=== PATIENT | male | born 1990 | race African-American/Black ===

== ENCOUNTER 2020-06-02 18:38 | Emergency (ER) | payer MEDICAID, OTHER ==
[~2020-06-02] VITALS: Ht 177.8 cm; Wt 112.9 kg
[2020-06-02 20:35] VITALS: BP 122/75
== END 2020-06-03 02:07 | disposition home or self-care (01) ==
LOC: ER 18:39
DX: U07.1 COVID-19 (principal); J06.9 Acute upper respiratory infection, unspecified
CPT/HCPCS: 36415; 71045; 87426

== ENCOUNTER 2022-07-21 13:53 | Emergency (ER) | payer MEDICAID ==
[~2022-07-21] VITALS: Ht 177.8 cm; Wt 128.0 kg
[2022-07-21 15:31] VITALS: BP 138/87
[2022-07-21] MEDS ORDERED: BACDST PO (15:34)
[2022-07-21] MEDS ORDERED: PRED20TA2 PO (15:34)
== END 2022-07-21 15:44 | disposition home or self-care (01) ==
LOC: ER 13:53
DX: J01.90 Acute sinusitis, unspecified (principal); J45.909 Unspecified asthma, uncomplicated

== ENCOUNTER 2022-09-07 11:57 | Emergency (ER) | payer MEDICAID ==
[~2022-09-07] VITALS: Ht 177.8 cm; Wt 128.8 kg
[~2022-09-07 11:57] MED LIST: BACDST PO; PRED20TA2 PO
[2022-09-07 14:08] LABS: Basophils # (auto) 0.1 10 ^3/uL (0-0.2); Basophils % (auto) 0.6 % (0.0-2.0); Eosinophils # (auto) 0.1 10 ^3/uL (0-0.8); Eosinophils % (auto) 0.6 % (0.0-7.0); Hematocrit 39.2 % (41.0-53.0); Hemoglobin 12.7 g/dL (13.5-17.5); Lymphocytes # (auto) 0.5 10 ^3/uL (0.4-5.4); Mean Corpuscular Hemoglobin 28.5 pg (28.0-32.0); Mean Corpuscular Hgb Conc. 32.5 g/dL (32.0-36.0); Mean Corpuscular Volume 87.8 fL (80.0-100.0); Monocytes # (auto) 0.7 10 ^3/uL (0-1.3); Neutrophils # (auto) 7.7 10 ^3/uL (1.6-8.6); Neutrophils % (auto) 84.8 % (37.0-80.0); Nucleated Red Blood Cells % 0.1 %; Red Blood Cells 4.47 10^6/uL (4.5-5.90); Red Cell Distribution Width 14.5 % (11.8-14.3); White Blood Cell 9.1 10^3/uL (4.4-10.8)
[2022-09-07 14:28] LABS: Albumin 3.4 g/dL (3.4-5.0); Calcium 8.2 mg/dL (8.5-10.1); Potassium 3.6 mmol/L (3.5-5.1)
[2022-09-07 14:42] LABS: Bilirubin, Total 0.6 mg/dL (0.2-1.0); CRP High Sensitivity 7.16 mg/dL (< 0.3); Total Protein 7.6 g/dL (6.4-8.2)
[2022-09-07] MEDS ORDERED: OSEL75CA5 PO (17:29)
[2022-09-07] MEDS ORDERED: IPRATROPIUM BROM 0.5 MG/2.5ML INH SOL NEB ONE (17:30)
[2022-09-07] MEDS ORDERED: DexAMETHasone SOD PHOS 10MG/1ML VIAL INJ IM ONE (17:30)
[2022-09-07] MEDS ORDERED: ALBUTEROL SULF 2.5 MG/0.5ML(0.5%) NEB SOLN NEB ONE (17:30)
[2022-09-07] MEDS ORDERED: ACETAMINOPHEN 325 MG TAB PO ONE (18:00)
[2022-09-07 21:36] VITALS: BP 156/99
== END 2022-09-07 21:44 | disposition home or self-care (01) ==
LOC: ER 11:57
DX: J10.1 Influenza due to other identified influenza virus with other respiratory manifestations (principal); Z20.822 Contact with and (suspected) exposure to COVID-19
CPT/HCPCS: 36415; 71045; 80053; 83605; 85025; 86141; 87040; 87426; 87804; 94640; 96372; 99285; J1100; J7644